=== PATIENT | male | born 1985 | race Caucasian/White ===

== ENCOUNTER 2020-09-26 10:43 | Emergency (ER) | payer OTHER ==
[2020-09-26] MEDS ORDERED: IBUPROFEN 600 MG TABLET (FP) PO ONE ×2 (10:55→11:03)
[2020-09-26 12:16] VITALS: BP 128/77; PULSE 72; TEMP 98.2; BMI 34.8
== END 2020-09-26 12:40 | disposition home or self-care (01) ==
LOC: FER 10:43
DX: S92.215A Nondisplaced fracture of cuboid bone of left foot, initial encounter for closed fracture (principal)
CPT/HCPCS: 73610-TC-LT-FY; 73630-TC-LT; 99283-25

== ENCOUNTER 2020-09-27 10:01 | Emergency (ER) | payer OTHER ==
[2020-09-27 10:16] VITALS: BP 147/93; PULSE 91; TEMP 98.1; BMI 34.8
[2020-09-27] MEDS ORDERED: KETOROLAC TROMETHAMINE 60 MG/2 ML VIAL IM ONE (11:12)
[2020-09-27] MEDS ORDERED: KETOROLAC TROMETHAMINE 60 MG/2 ML VIAL ONE (11:45)
== END 2020-09-27 14:00 | disposition home or self-care (01) ==
LOC: FER 10:01
PROC: 3E0233Z Introduction of Anti-inflammatory into Muscle, Percutaneous Approach (ICD-10-PCS; principal; 2020-09-27)
DX: S93.422A Sprain of deltoid ligament of left ankle, initial encounter (principal)
CPT/HCPCS: 73700-TC-RT; 99284-25